=== PATIENT | male | born 1995 | race Caucasian/White ===

== ENCOUNTER 2021-06-04 09:19 | Emergency (ER) | payer BC ==
[2021-06-04] MEDS ORDERED: Dexamethasone 10 MG/ML SDV IM STA (09:36)
== END 2021-06-04 10:01 | disposition home or self-care (01) ==
LOC: MW.ED 09:19
DX: J04.0 Acute laryngitis (principal)
CPT/HCPCS: 71045; 96372; 99283; J1100